=== PATIENT | male | born 1955 | race Caucasian/White ===

== ENCOUNTER 2017-02-12 08:15 | Inpatient (IN) | payer OTHER ==
[~2017-02-12] VITALS: Ht 182.9 cm; Wt 95.4 kg
[2017-02-12 08:57] LABS: BASOPHIL % 0.7 % (0-2); PLATELET COUNT 139 x10^3mcL (130-400); RED CELL DISTRIBUTION WIDTH 13.3 % (11.5-14.5)
[2017-02-12] MEDS ORDERED: ZESTRIL5 MG PO (08:57)
[2017-02-12 09:00] LABS: CALCIUM 7.6 mg/dL (8.5-10.1); CARBON DIOXIDE 22.5 mmol/L (21-32); CHLORIDE SERUM 90 mmol/L (98-107); CREATININE SERUM 0.9 mg/dL (0.7-1.3); GFR1 > 60 mL/min; GLUCOSE SERUM 117 mg/dL (74-106); POTASSIUM SERUM 3.2 mmol/L (3.5-5.1); SODIUM SERUM 125 mmol/L (136-145)
[2017-02-12 09:04] LABS: ALKALINE PHOSPHATASE 132 U/L (46-116); ALT/SGPT 35 U/L (16-63); AST/SGOT 111 U/L (15-37); BILIRUBIN TOTAL 1.14 mg/dL (0.20-1.00); MAGNESIUM 1.7 mg/dL (1.8-2.4); PHOSPHOROUS 4.2 mg/dL (2.5-4.9)
[2017-02-12 09:05] LABS: ALBUMIN 2.8 g/dL (3.4-5.0); TOTAL PROTEIN, SERUM 6.1 g/dL (6.4-8.2)
[2017-02-12 10:59] LABS: CHOLESTEROL/HDL RATIO 2.3
[2017-02-12 11:05] LABS: FREE T4 1.19 ng/dL (0.76-1.46); FREE THYROXINE INDEX 3.2 ug/dL (1.4-4.5); T4(THYROXINE) 7.9 ug/dL (4.7-13.3)
[2017-02-12 11:13] LABS: T3 TOTAL 0.97 ng/mL
[2017-02-12 12:11] VITALS: BP 106/77
[2017-02-12 12:14] VITALS: BP 106/77
[2017-02-12 17:37] LABS: CALCIUM 7.8 mg/dL (8.5-10.1); CARBON DIOXIDE 24.4 mmol/L (21-32); CHLORIDE SERUM 92 mmol/L (98-107); CREATININE SERUM 0.7 mg/dL (0.7-1.3); GFR1 > 60 mL/min; GLUCOSE SERUM 118 mg/dL (74-106); SODIUM SERUM 126 mmol/L (136-145)
[2017-02-12 17:43] VITALS: BP 130/76
[2017-02-12 18:23] LABS: microscopic required? NO
[2017-02-12 18:34] LABS: UA SPECIFIC GRAVITY >=1.030 (1.005-1.035); urine erythrocyte NEGATIVE (NEGATIVE)
[2017-02-12 18:54] LABS: AMPHETAMINE QUAL UR NONE DETECTED (NEG <=1000)
[2017-02-12 21:49] VITALS: BP 119/61
[2017-02-13 05:39] LABS: RED CELL DISTRIBUTION WIDTH 13.3 % (11.5-14.5)
[2017-02-13 06:00] LABS: CALCIUM 7.8 mg/dL (8.5-10.1); CARBON DIOXIDE 26.4 mmol/L (21-32); CHLORIDE SERUM 97 mmol/L (98-107); CREATININE SERUM 0.7 mg/dL (0.7-1.3); GFR1 > 60 mL/min; GLUCOSE SERUM 94 mg/dL (74-106); MAGNESIUM 2.1 mg/dL (1.8-2.4); POTASSIUM SERUM 4.1 mmol/L (3.5-5.1); SODIUM SERUM 129 mmol/L (136-145)
[2017-02-13 06:04] VITALS: BP 111/64
[2017-02-13 07:30] LABS: PLATELET COUNT 57 x10^3mcL (130-400)
[2017-02-13 08:48] VITALS: BP 102/60
[2017-02-13 10:50] LABS: BAND NEUTROPHIL 0 % (0-10); BASOPHIL 0 % (0-2); MONOCYTE 6 % (0-7); SEGMENTED NEUTROPHILS 79 % (37-75)
[2017-02-13 10:51] LABS: PLATELET MORPHOLOGY PLATELETS DECREASED
[2017-02-13 11:51] LABS: RED BLOOD CELLS 3.15 M/mm3 (4.52-5.90)
[2017-02-13 11:52] LABS: IRON 161 ug/dL (65-170)
[2017-02-13 12:03] LABS: TOTAL IRON BINDING CAPACITY 156 ug/dL (250-450)
[2017-02-13 16:59] VITALS: BP 122/75
[2017-02-13 21:33] VITALS: BP 125/79
[2017-02-14 06:03] VITALS: BP 133/84
[2017-02-14 07:00] LABS: RED CELL DISTRIBUTION WIDTH 13.3 % (11.5-14.5)
[2017-02-14 07:18] LABS: ALKALINE PHOSPHATASE 111 U/L (46-116); ALT/SGPT 37 U/L (16-63); AST/SGOT 103 U/L (15-37); CALCIUM 7.8 mg/dL (8.5-10.1); CARBON DIOXIDE 25.7 mmol/L (21-32); CHLORIDE SERUM 99 mmol/L (98-107); CREATININE SERUM 0.7 mg/dL (0.7-1.3); GFR1 > 60 mL/min; GLUCOSE SERUM 97 mg/dL (74-106); POTASSIUM SERUM 4.4 mmol/L (3.5-5.1); SODIUM SERUM 129 mmol/L (136-145)
[2017-02-14 07:21] LABS: ALBUMIN 2.4 g/dL (3.4-5.0); TOTAL PROTEIN, SERUM 5.1 g/dL (6.4-8.2)
[2017-02-14 07:45] LABS: PLATELET COUNT 54 x10^3mcL (130-400)
[2017-02-14 10:14] VITALS: BP 132/83
[2017-02-14 10:35] LABS: ATYPICAL LYMPH 4 %; BAND NEUTROPHIL 4 % (0-10); MONOCYTE 6 % (0-7); SEGMENTED NEUTROPHILS 76 % (37-75)
[2017-02-14 10:36] LABS: rbc morphology (normal/abnorm) ABNORMAL (NORMAL)
[2017-02-14 18:21] VITALS: BP 125/79
[2017-02-14 21:28] VITALS: BP 136/83
[2017-02-15 05:47] VITALS: BP 133/86
[2017-02-15 06:30] LABS: CARBON DIOXIDE 26.8 mmol/L (21-32); CHLORIDE SERUM 102 mmol/L (98-107); CREATININE SERUM 0.6 mg/dL (0.7-1.3); GFR1 > 60 mL/min; GLUCOSE SERUM 80 mg/dL (74-106); POTASSIUM SERUM 4.9 mmol/L (3.5-5.1); SODIUM SERUM 133 mmol/L (136-145)
[2017-02-15 07:10] LABS: BASOPHIL % 0.6 % (0-2); RED CELL DISTRIBUTION WIDTH 13.1 % (11.5-14.5)
[2017-02-15 07:21] LABS: PLATELET COUNT 57 x10^3mcL (130-400)
[2017-02-15 10:33] VITALS: BP 138/8
[2017-02-15] MEDS ORDERED: SOD1 PO (14:02)
[2017-02-15] MEDS ORDERED: ATI1 PO (14:02)
[2017-02-15] MEDS ORDERED: ZOF4 PO (14:03)
[2017-02-15] MEDS ORDERED: THI100 PO (14:03)
[2017-02-15] MEDS ORDERED: THERAGRAN-M1 TA4 PO (14:04)
[2017-02-15] MEDS ORDERED: NORCO1 TA1 PO (14:13)
[2017-02-15 14:19] VITALS: BP 138/86
[2017-02-15 15:28] VITALS: BP 123/78
== END 2017-02-15 15:08 | disposition home or self-care (01) | DRG 204 ==
LOC: ED 08:15 → DU 10:13 → MU 10:13 → DU 12:05 → MU 02-13 06:49
PROVIDERS: Emergency Medicine; Family Medicine; ADMIT Family Medicine
DX: I95.1 Orthostatic hypotension (principal); E43 Unspecified severe protein-calorie malnutrition; E87.2 Acidosis; D61.818 Other pancytopenia; E11.42 Type 2 diabetes mellitus with diabetic polyneuropathy; I48.91 Unspecified atrial fibrillation; G90.9 Disorder of the autonomic nervous system, unspecified; E87.1 Hypo-osmolality and hyponatremia; I10 Essential (primary) hypertension; G62.9 Polyneuropathy, unspecified; E87.6 Hypokalemia; E83.51 Hypocalcemia; E83.42 Hypomagnesemia; L82.1 Other seborrheic keratosis; D64.9 Anemia, unspecified; F10.29 Alcohol dependence with unspecified alcohol-induced disorder; M54.5 Low back pain; D53.9 Nutritional anemia, unspecified; F10.239 Alcohol dependence with withdrawal, unspecified; E87.8 Other disorders of electrolyte and fluid balance, not elsewhere classified; Z96.643 Presence of artificial hip joint, bilateral
CPT/HCPCS: 80307; 83880; 84439; 97110-GP; 97116-GP; 97530-GP; G0480; J1644; J1956; J2060; J2270; J2405; J3475; J7030; J7040; J7613; J7644; Q0092

== ENCOUNTER 2017-03-17 18:26 | Inpatient (IN) | payer OTHER ==
[~2017-03-17] VITALS: Ht 185.4 cm; Wt 94.9 kg
[~2017-03-17 18:26] MED LIST: ATI1 PO; NORCO1 TA1 PO; SOD1 PO; THERAGRAN-M1 TA4 PO; THI100 PO; ZESTRIL5 MG PO; ZOF4 PO
[2017-03-17 19:11] LABS: microscopic required? NO
[2017-03-17 19:17] LABS: PLATELET COUNT 133 x10^3mcL (130-400); RED CELL DISTRIBUTION WIDTH 12.8 % (11.5-14.5)
[2017-03-17 19:20] LABS: UA SPECIFIC GRAVITY <=1.005 (1.005-1.035); urine erythrocyte NEGATIVE (NEGATIVE)
[2017-03-17 19:33] LABS: ALKALINE PHOSPHATASE 187 U/L (46-116); ALT/SGPT 26 U/L (16-63); AST/SGOT 71 U/L (15-37); BILIRUBIN TOTAL 1.69 mg/dL (0.20-1.00); CALCIUM 8.6 mg/dL (8.5-10.1); CARBON DIOXIDE 29.8 mmol/L (21-32); CHLORIDE SERUM 82 mmol/L (98-107); CREATININE SERUM 0.7 mg/dL (0.7-1.3); GFR1 > 60 mL/min; GLUCOSE SERUM 100 mg/dL (74-106); POTASSIUM SERUM 3.6 mmol/L (3.5-5.1); TOTAL PROTEIN, SERUM 6.6 g/dL (6.4-8.2)
[2017-03-17 19:36] LABS: ALBUMIN 2.9 g/dL (3.4-5.0)
[2017-03-17 19:37] LABS: SODIUM SERUM 118 mmol/L (136-145)
[2017-03-17 20:06] LABS: BAND NEUTROPHIL 4 % (0-10); METAMYELOCTE 1 % (0-2); MONOCYTE 9 % (0-7); SEGMENTED NEUTROPHILS 81 % (37-75)
[2017-03-17 20:08] LABS: PLATELET MORPHOLOGY FEW LARGE PLATELETS; rbc morphology (normal/abnorm) NORMAL (NORMAL)
[2017-03-17 22:33] LABS: FREE T4 1.43 ng/dL (0.76-1.46); FREE THYROXINE INDEX 3.8 ug/dL (1.4-4.5); T3 TOTAL 1.07 ng/mL; T4(THYROXINE) 10.2 ug/dL (4.7-13.3)
[2017-03-17 23:31] LABS: AMYLASE 30 U/L (25-115); CALCIUM 8.5 mg/dL (8.5-10.1); CHLORIDE SERUM 84 mmol/L (98-107); CHOLESTEROL 144 mg/dL (<200); CREATININE SERUM 0.6 mg/dL (0.7-1.3); GFR1 > 60 mL/min; GLUCOSE SERUM 130 mg/dL (74-106); LIPASE 98 IU/L (73-393); POTASSIUM SERUM 3.6 mmol/L (3.5-5.1); TRIGLYCERIDES 88 mg/dL (<150)
[2017-03-17 23:41] LABS: CHOLESTEROL/HDL RATIO 4.4; HDL CHOLESTEROL 33 mg/dL (40-60)
[2017-03-17 23:42] LABS: SODIUM SERUM 119 mmol/L (136-145)
[2017-03-18 00:56] VITALS: BP 135/85; BP 136/85
[2017-03-18 02:18] LABS: CALCIUM 8.1 mg/dL (8.5-10.1); CARBON DIOXIDE 27.3 mmol/L (21-32); CREATININE SERUM 0.7 mg/dL (0.7-1.3); GFR1 > 60 mL/min; GLUCOSE SERUM 131 mg/dL (74-106); POTASSIUM SERUM 3.5 mmol/L (3.5-5.1)
[2017-03-18 02:26] LABS: CHLORIDE SERUM 84 mmol/L (98-107)
[2017-03-18 02:28] LABS: SODIUM SERUM 119 mmol/L (136-145)
[2017-03-18 04:52] LABS: AMPHETAMINE QUAL UR NONE DETECTED (NEG <=1000)
[2017-03-18 05:27] VITALS: BP 127/73
[2017-03-18 07:10] LABS: CHOLESTEROL/HDL RATIO 4.4
[2017-03-18 07:42] LABS: CALCIUM 7.9 mg/dL (8.5-10.1); CARBON DIOXIDE 27.7 mmol/L (21-32); CHLORIDE SERUM 86 mmol/L (98-107); CREATININE SERUM 0.7 mg/dL (0.7-1.3); GFR1 > 60 mL/min; GLUCOSE SERUM 116 mg/dL (74-106); MAGNESIUM 1.7 mg/dL (1.8-2.4); POTASSIUM SERUM 3.3 mmol/L (3.5-5.1)
[2017-03-18 07:54] LABS: BASOPHIL % 0.2 % (0-2); RED CELL DISTRIBUTION WIDTH 12.9 % (11.5-14.5)
[2017-03-18 07:57] LABS: PLATELET COUNT 95 x10^3mcL (130-400)
[2017-03-18 07:58] LABS: SODIUM SERUM 120 mmol/L (136-145)
[2017-03-18 09:51] VITALS: BP 137/85
[2017-03-18 12:10] LABS: CALCIUM 7.8 mg/dL (8.5-10.1); CARBON DIOXIDE 28.4 mmol/L (21-32); CHLORIDE SERUM 86 mmol/L (98-107); CREATININE SERUM 0.7 mg/dL (0.7-1.3); GFR1 > 60 mL/min; GLUCOSE SERUM 114 mg/dL (74-106); POTASSIUM SERUM 3.1 mmol/L (3.5-5.1)
[2017-03-18 12:31] LABS: SODIUM SERUM 120 mmol/L (136-145)
[2017-03-18 13:14] VITALS: BP 128/73
[2017-03-18 16:19] LABS: CALCIUM 8.5 mg/dL (8.5-10.1); CARBON DIOXIDE 29.9 mmol/L (21-32); CHLORIDE SERUM 86 mmol/L (98-107); CREATININE SERUM 0.7 mg/dL (0.7-1.3); GFR1 > 60 mL/min; GLUCOSE SERUM 122 mg/dL (74-106); POTASSIUM SERUM 3.8 mmol/L (3.5-5.1)
[2017-03-18 16:40] LABS: SODIUM SERUM 120 mmol/L (136-145)
[2017-03-18 17:30] VITALS: BP 122/71
[2017-03-18 20:24] LABS: CALCIUM 8.7 mg/dL (8.5-10.1); CARBON DIOXIDE 30.6 mmol/L (21-32); CHLORIDE SERUM 86 mmol/L (98-107); CREATININE SERUM 0.7 mg/dL (0.7-1.3); GFR1 > 60 mL/min; GLUCOSE SERUM 133 mg/dL (74-106); POTASSIUM SERUM 3.9 mmol/L (3.5-5.1)
[2017-03-18 20:27] LABS: SODIUM SERUM 120 mmol/L (136-145)
[2017-03-18 21:39] VITALS: BP 121/71
[2017-03-19 05:57] VITALS: BP 127/77
[2017-03-19 07:16] LABS: PLATELET COUNT 138 x10^3mcL (130-400); RED CELL DISTRIBUTION WIDTH 13.2 % (11.5-14.5)
[2017-03-19 07:24] LABS: CALCIUM 8.6 mg/dL (8.5-10.1); CARBON DIOXIDE 28.2 mmol/L (21-32); CHLORIDE SERUM 85 mmol/L (98-107); CREATININE SERUM 0.7 mg/dL (0.7-1.3); GFR1 > 60 mL/min; GLUCOSE SERUM 118 mg/dL (74-106); PHOSPHOROUS 3.7 mg/dL (2.5-4.9); POTASSIUM SERUM 3.8 mmol/L (3.5-5.1)
[2017-03-19 08:21] LABS: SODIUM SERUM 119 mmol/L (136-145)
[2017-03-19 09:05] VITALS: BP 130/77
[2017-03-19 10:45] LABS: BAND NEUTROPHIL 0 % (0-10); BASOPHIL 0 % (0-2); MONOCYTE 11 % (0-7); SEGMENTED NEUTROPHILS 81 % (37-75)
[2017-03-19 10:46] LABS: PLATELET MORPHOLOGY PLATELETS DECREASED; rbc morphology (normal/abnorm) ABNORMAL (NORMAL)
[2017-03-19 13:20] VITALS: BP 113/72
[2017-03-19 15:22] LABS: CALCIUM 7.9 mg/dL (8.5-10.1); CARBON DIOXIDE 25.9 mmol/L (21-32); CHLORIDE SERUM 88 mmol/L (98-107); CREATININE SERUM 0.9 mg/dL (0.7-1.3); GFR1 > 60 mL/min; GLUCOSE SERUM 121 mg/dL (74-106)
[2017-03-19 15:28] LABS: SODIUM SERUM 117 mmol/L (136-145)
[2017-03-19 15:29] LABS: POTASSIUM SERUM 2.8 mmol/L (3.5-5.1)
[2017-03-19 17:35] VITALS: BP 124/72
[2017-03-19 20:24] LABS: CARBON DIOXIDE 25.2 mmol/L (21-32); CHLORIDE SERUM 87 mmol/L (98-107); CREATININE SERUM 0.8 mg/dL (0.7-1.3); GFR1 > 60 mL/min; GLUCOSE SERUM 112 mg/dL (74-106); POTASSIUM SERUM 3.4 mmol/L (3.5-5.1)
[2017-03-19 20:28] LABS: SODIUM SERUM 120 mmol/L (136-145)
[2017-03-19 21:25] VITALS: BP 113/80
[2017-03-20 00:46] LABS: CALCIUM 8.1 mg/dL (8.5-10.1); CARBON DIOXIDE 26.9 mmol/L (21-32); CHLORIDE SERUM 86 mmol/L (98-107); CREATININE SERUM 0.7 mg/dL (0.7-1.3); GFR1 > 60 mL/min; GLUCOSE SERUM 99 mg/dL (74-106); POTASSIUM SERUM 3.7 mmol/L (3.5-5.1)
[2017-03-20 00:52] LABS: SODIUM SERUM 120 mmol/L (136-145)
[2017-03-20 05:31] VITALS: BP 124/77
[2017-03-20 07:30] LABS: RED CELL DISTRIBUTION WIDTH 13.2 % (11.5-14.5)
[2017-03-20 07:31] LABS: BASOPHIL % 0 % (0-2); PLATELET COUNT 97 x10^3mcL (130-400)
[2017-03-20 07:33] LABS: CALCIUM 8.1 mg/dL (8.5-10.1); CARBON DIOXIDE 25.8 mmol/L (21-32); CHLORIDE SERUM 90 mmol/L (98-107); CREATININE SERUM 0.7 mg/dL (0.7-1.3); GFR1 > 60 mL/min; GLUCOSE SERUM 92 mg/dL (74-106); PHOSPHOROUS 3.4 mg/dL (2.5-4.9); POTASSIUM SERUM 3.6 mmol/L (3.5-5.1)
[2017-03-20 07:49] LABS: SODIUM SERUM 124 mmol/L (136-145)
[2017-03-20 09:04] VITALS: BP 144/78
[2017-03-20 14:13] LABS: CALCIUM 8.2 mg/dL (8.5-10.1); CARBON DIOXIDE 26.1 mmol/L (21-32); CHLORIDE SERUM 87 mmol/L (98-107); CREATININE SERUM 0.8 mg/dL (0.7-1.3); GFR1 > 60 mL/min; GLUCOSE SERUM 101 mg/dL (74-106); POTASSIUM SERUM 3.6 mmol/L (3.5-5.1)
[2017-03-20 14:16] LABS: SODIUM SERUM 122 mmol/L (136-145)
[2017-03-20 18:50] VITALS: BP 147/77
[2017-03-20 21:19] LABS: CALCIUM 8.4 mg/dL (8.5-10.1); CARBON DIOXIDE 24.2 mmol/L (21-32); CHLORIDE SERUM 89 mmol/L (98-107); CREATININE SERUM 0.7 mg/dL (0.7-1.3); GFR1 > 60 mL/min; GLUCOSE SERUM 107 mg/dL (74-106); POTASSIUM SERUM 3.9 mmol/L (3.5-5.1)
[2017-03-20 21:23] LABS: SODIUM SERUM 121 mmol/L (136-145)
[2017-03-20 21:28] VITALS: BP 129/67
[2017-03-21 05:21] VITALS: BP 123/70
[2017-03-21 06:56] LABS: CALCIUM 8.5 mg/dL (8.5-10.1); CARBON DIOXIDE 22.7 mmol/L (21-32); CHLORIDE SERUM 89 mmol/L (98-107); CREATININE SERUM 0.6 mg/dL (0.7-1.3); GFR1 > 60 mL/min; GLUCOSE SERUM 88 mg/dL (74-106); POTASSIUM SERUM 3.2 mmol/L (3.5-5.1); SODIUM SERUM 126 mmol/L (136-145)
[2017-03-21 10:00] VITALS: BP 132/85
[2017-03-21 12:30] VITALS: BP 120/71
[2017-03-21 12:46] LABS: CHLORIDE SERUM 89 mmol/L (98-107); POTASSIUM SERUM 3.2 mmol/L (3.5-5.1)
[2017-03-21 12:55] LABS: CALCIUM 8.5 mg/dL (8.5-10.1); CARBON DIOXIDE 24.3 mmol/L (21-32); CREATININE SERUM 0.7 mg/dL (0.7-1.3); GFR1 > 60 mL/min; GLUCOSE SERUM 104 mg/dL (74-106)
[2017-03-21 13:01] LABS: SODIUM SERUM 123 mmol/L (136-145)
[2017-03-21 15:08] VITALS: BP 119/68
[2017-03-21 17:29] VITALS: BP 120/72
[2017-03-21 17:50] LABS: CALCIUM 8.1 mg/dL (8.5-10.1); CHLORIDE SERUM 93 mmol/L (98-107); CREATININE SERUM 0.6 mg/dL (0.7-1.3); GFR1 > 60 mL/min; GLUCOSE SERUM 113 mg/dL (74-106); POTASSIUM SERUM 3.4 mmol/L (3.5-5.1); SODIUM SERUM 125 mmol/L (136-145)
[2017-03-21 18:04] VITALS: BP 120/72
== END 2017-03-21 19:40 | disposition home or self-care (01) | DRG 135 ==
LOC: ED 18:26 → DU 03-18 00:05
PROVIDERS: Emergency Medicine; Family Medicine; ADMIT Family Medicine
DX: S22.42XA Multiple fractures of ribs, left side, initial encounter for closed fracture (principal); N17.0 Acute kidney failure with tubular necrosis; E87.1 Hypo-osmolality and hyponatremia; K76.0 Fatty (change of) liver, not elsewhere classified; J98.11 Atelectasis; I10 Essential (primary) hypertension; Z96.643 Presence of artificial hip joint, bilateral; Z96.652 Presence of left artificial knee joint; W18.39XA Other fall on same level, initial encounter; Y93.89 Activity, other specified; Y92.014 Private driveway to single-family (private) house as the place of occurrence of the external cause
CPT/HCPCS: 80307; 83880; 84439; 94150; G0480; J1170; J1940; J1956; J2270; J2405; J3010; J3490; J7030; Q0092

== ENCOUNTER → 2017-07-03 | Outpatient (CLI) | payer OTHER | END | disposition home or self-care (01) | LOC: RD 11:23 | DX: W19.XXXA Unspecified fall, initial encounter (principal) ==

== ENCOUNTER 2017-10-25 12:12 | Inpatient (IN) | payer OTHER ==
[~2017-10-25] VITALS: Ht 182.9 cm; Wt 100.7 kg
[2017-10-25 12:40] LABS: PLATELET COUNT 130 x10^3mcL (130-400); RED CELL DISTRIBUTION WIDTH 14.3 % (11.5-14.5)
[2017-10-25 13:06] LABS: ALKALINE PHOSPHATASE 624 U/L (46-116); ALT/SGPT 18 U/L (16-63); AST/SGOT 120 U/L (15-37); BILIRUBIN TOTAL 9.02 mg/dL (0.20-1.00); CALCIUM 8.2 mg/dL (8.5-10.1); CHLORIDE SERUM 84 mmol/L (98-107); CREATININE SERUM 0.6 mg/dL (0.7-1.3); GFR1 > 60 mL/min; GLUCOSE SERUM 133 mg/dL (74-106); POTASSIUM SERUM 3.5 mmol/L (3.5-5.1)
[2017-10-25 13:07] LABS: BAND NEUTROPHIL 2 % (0-10); BASOPHIL 0 % (0-2); MONOCYTE 3 % (0-7); SEGMENTED NEUTROPHILS 91 % (37-75)
[2017-10-25 13:09] LABS: PLATELET MORPHOLOGY PLATELETS NORMAL
[2017-10-25 13:11] LABS: ALBUMIN 2.1 g/dL (3.4-5.0); SODIUM SERUM 118 mmol/L (136-145)
[2017-10-25] MEDS ORDERED: LASIX20 MG PO (14:21)
[2017-10-25] MEDS ORDERED: ALDACTONE25 MG PO (14:21)
[2017-10-25 17:18] LABS: APPEARANCE FLUID CLEAR; COLOR FLUID YELLOW; LYMPHOCYTE FLUID 40 %; RBC FLUID 32 /cumm; SOURCE FLUID ASCITES; WBC FLUID 142 /cumm
[2017-10-25 18:09] LABS: T3 TOTAL 0.88 ng/mL
[2017-10-25 18:12] LABS: FREE T4 1.89 ng/dL (0.76-1.46); T4(THYROXINE) 9.9 ug/dL (4.7-13.3)
[2017-10-25 18:23] VITALS: BP 108/63
[2017-10-25 18:53] LABS: MAGNESIUM 1.9 mg/dL (1.8-2.4); PHOSPHOROUS 3.4 mg/dL (2.5-4.9)
[2017-10-25 18:55] LABS: CHOLESTEROL/HDL RATIO 7.8
[2017-10-25 20:54] VITALS: BP 99/62
[2017-10-25 21:17] LABS: CALCIUM 7.8 mg/dL (8.5-10.1); CHLORIDE SERUM 85 mmol/L (98-107); CREATININE SERUM 0.6 mg/dL (0.7-1.3); GFR1 > 60 mL/min; GLUCOSE SERUM 120 mg/dL (74-106); POTASSIUM SERUM 3.5 mmol/L (3.5-5.1)
[2017-10-25 21:23] LABS: SODIUM SERUM 119 mmol/L (136-145)
[2017-10-25 21:41] LABS: microscopic required? YES; urine erythrocyte NEGATIVE (NEGATIVE)
[2017-10-25 21:49] LABS: AMPHETAMINE QUAL UR NONE DETECTED (NEG <=1000)
[2017-10-25 21:54] LABS: OSMOLALITY SERUM 246 mOsm/kg (278-298)
[2017-10-26 01:36] LABS: CALCIUM 7.7 mg/dL (8.5-10.1); CARBON DIOXIDE 32.6 mmol/L (21-32); CHLORIDE SERUM 85 mmol/L (98-107); CREATININE SERUM 0.6 mg/dL (0.7-1.3); GFR1 > 60 mL/min; GLUCOSE SERUM 110 mg/dL (74-106); POTASSIUM SERUM 3.5 mmol/L (3.5-5.1)
[2017-10-26 02:08] LABS: SODIUM SERUM 119 mmol/L (136-145)
[2017-10-26 04:12] LABS: CARBON DIOXIDE 30.7 mmol/L (21-32); CHLORIDE SERUM 86 mmol/L (98-107); CREATININE SERUM 0.6 mg/dL (0.7-1.3); GFR1 > 60 mL/min; GLUCOSE SERUM 125 mg/dL (74-106); POTASSIUM SERUM 3.5 mmol/L (3.5-5.1)
[2017-10-26 04:18] LABS: SODIUM SERUM 120 mmol/L (136-145)
[2017-10-26 05:51] VITALS: BP 89/54
[2017-10-26 06:55] LABS: BASOPHIL % 0.3 % (0-2); RED CELL DISTRIBUTION WIDTH 14.1 % (11.5-14.5)
[2017-10-26 06:59] LABS: PLATELET COUNT 81 x10^3mcL (130-400)
[2017-10-26 07:11] LABS: CALCIUM 7.8 mg/dL (8.5-10.1); CARBON DIOXIDE 29.3 mmol/L (21-32); CHLORIDE SERUM 85 mmol/L (98-107); CREATININE SERUM 0.6 mg/dL (0.7-1.3); GFR1 > 60 mL/min; GLUCOSE SERUM 112 mg/dL (74-106); MAGNESIUM 1.9 mg/dL (1.8-2.4); PHOSPHOROUS 3.5 mg/dL (2.5-4.9); POTASSIUM SERUM 3.1 mmol/L (3.5-5.1)
[2017-10-26 07:21] LABS: SODIUM SERUM 122 mmol/L (136-145)
[2017-10-26 09:38] VITALS: BP 98/58
[2017-10-26 14:05] VITALS: BP 108/63
[2017-10-26 16:57] LABS: CALCIUM 8.3 mg/dL (8.5-10.1); CARBON DIOXIDE 29.7 mmol/L (21-32); CHLORIDE SERUM 86 mmol/L (98-107); CREATININE SERUM 0.5 mg/dL (0.7-1.3); GFR1 > 60 mL/min; GLUCOSE SERUM 114 mg/dL (74-106); POTASSIUM SERUM 3.4 mmol/L (3.5-5.1)
[2017-10-26 16:59] LABS: SODIUM SERUM 122 mmol/L (136-145)
[2017-10-26 17:25] VITALS: BP 94/59
[2017-10-26 20:04] LABS: CALCIUM 7.9 mg/dL (8.5-10.1); CARBON DIOXIDE 28.9 mmol/L (21-32); CHLORIDE SERUM 88 mmol/L (98-107); CREATININE SERUM 0.8 mg/dL (0.7-1.3); GFR1 > 60 mL/min; GLUCOSE SERUM 128 mg/dL (74-106); POTASSIUM SERUM 3.3 mmol/L (3.5-5.1)
[2017-10-26 20:05] LABS: SODIUM SERUM 122 mmol/L (136-145)
[2017-10-26 20:54] VITALS: BP 103/63
[2017-10-27 01:13] LABS: CARBON DIOXIDE 28.2 mmol/L (21-32); CHLORIDE SERUM 88 mmol/L (98-107); CREATININE SERUM 0.6 mg/dL (0.7-1.3); GFR1 > 60 mL/min; GLUCOSE SERUM 119 mg/dL (74-106); POTASSIUM SERUM 3.4 mmol/L (3.5-5.1)
[2017-10-27 01:16] LABS: SODIUM SERUM 122 mmol/L (136-145)
[2017-10-27 05:01] VITALS: BP 100/56
[2017-10-27 05:09] VITALS: BP 114/72
[2017-10-27 06:47] LABS: BASOPHIL % 0.3 % (0-2); RED CELL DISTRIBUTION WIDTH 14.2 % (11.5-14.5)
[2017-10-27 07:04] LABS: CALCIUM 7.8 mg/dL (8.5-10.1); CARBON DIOXIDE 28.8 mmol/L (21-32); CHLORIDE SERUM 91 mmol/L (98-107); CREATININE SERUM 0.7 mg/dL (0.7-1.3); GFR1 > 60 mL/min; GLUCOSE SERUM 109 mg/dL (74-106); SODIUM SERUM 125 mmol/L (136-145)
[2017-10-27 07:17] LABS: PLATELET COUNT 97 x10^3mcL (130-400)
[2017-10-27 09:29] VITALS: BP 102/50
[2017-10-27 15:00] LABS: RED BLOOD CELLS 2.87 M/mm3 (4.52-5.90)
[2017-10-27 15:02] LABS: IRON 54 ug/dL (65-170)
[2017-10-27 15:06] LABS: TOTAL IRON BINDING CAPACITY 63 ug/dL (250-450)
[2017-10-27 16:20] VITALS: BP 92/48
[2017-10-27 20:59] VITALS: BP 102/54
[2017-10-28 05:24] VITALS: BP 91/55
[2017-10-28 06:31] LABS: CALCIUM 7.7 mg/dL (8.5-10.1); CARBON DIOXIDE 28.5 mmol/L (21-32); CHLORIDE SERUM 94 mmol/L (98-107); CREATININE SERUM 0.6 mg/dL (0.7-1.3); GFR1 > 60 mL/min; GLUCOSE SERUM 87 mg/dL (74-106); POTASSIUM SERUM 3.7 mmol/L (3.5-5.1); SODIUM SERUM 126 mmol/L (136-145)
[2017-10-28 06:42] LABS: BASOPHIL % 1.4 % (0-2); RED CELL DISTRIBUTION WIDTH 14.5 % (11.5-14.5)
[2017-10-28 06:44] LABS: PLATELET COUNT 82 x10^3mcL (130-400)
[2017-10-28 09:16] VITALS: BP 91/57
[2017-10-28 13:10] LABS: CALCIUM 7.7 mg/dL (8.5-10.1); CARBON DIOXIDE 27.2 mmol/L (21-32); CHLORIDE SERUM 93 mmol/L (98-107); CREATININE SERUM 0.6 mg/dL (0.7-1.3); GFR1 > 60 mL/min; GLUCOSE SERUM 100 mg/dL (74-106); POTASSIUM SERUM 3.4 mmol/L (3.5-5.1); SODIUM SERUM 127 mmol/L (136-145)
[2017-10-28 16:10] VITALS: BP 105/61
[2017-10-28 21:01] VITALS: BP 92/54
[2017-10-29 05:11] VITALS: BP 93/59
[2017-10-29 06:29] LABS: CALCIUM 8.2 mg/dL (8.5-10.1); CARBON DIOXIDE 26.1 mmol/L (21-32); CHLORIDE SERUM 94 mmol/L (98-107); CREATININE SERUM 0.5 mg/dL (0.7-1.3); GFR1 > 60 mL/min; GLUCOSE SERUM 110 mg/dL (74-106); MAGNESIUM 2.1 mg/dL (1.8-2.4); PHOSPHOROUS 3.3 mg/dL (2.5-4.9); POTASSIUM SERUM 3.8 mmol/L (3.5-5.1); SODIUM SERUM 128 mmol/L (136-145)
[2017-10-29 06:52] LABS: PLATELET COUNT 116 x10^3mcL (130-400); RED CELL DISTRIBUTION WIDTH 14.6 % (11.5-14.5)
[2017-10-29 09:03] VITALS: BP 94/60
[2017-10-29 11:06] VITALS: BP 94/60
[2017-10-29 11:33] LABS: BAND NEUTROPHIL 0 % (0-10); BASOPHIL 0 % (0-2); MONOCYTE 5 % (0-7); SEGMENTED NEUTROPHILS 92 % (37-75)
[2017-10-29 11:34] LABS: rbc morphology (normal/abnorm) ABNORMAL (NORMAL)
[2017-10-29 11:35] LABS: PLATELET MORPHOLOGY PLATELETS DECREASED
[2017-10-29] MEDS ORDERED: SOD1 PO (11:46)
[2017-10-29] MEDS ORDERED: LAC30L PO (11:46)
[2017-10-29] MEDS ORDERED: LAC PO (11:47)
[2017-10-29] MEDS ORDERED: APAP/HYDROCODON1 T13 PO (11:48)
[2017-10-29] MEDS ORDERED: COL100 PO (11:48)
[2017-10-29] MEDS ORDERED: COMPAZINE10 M1 PO (11:50)
[2017-10-29] MEDS ORDERED: ATIVAN0.5 M1 PO (11:50)
[2017-10-29] MEDS ORDERED: TYL325 PR (11:52)
[2017-10-29] MEDS ORDERED: BISACODYL10 MG RC (11:53)
[2017-10-29] MEDS ORDERED: ALDACTONE25 MG PO (11:54)
== END 2017-10-29 12:36 | disposition hospice, home (50) | DRG 871 ==
LOC: ED 12:12 → MU 14:13 → DU 14:13 → MU 10-27 01:24
PROVIDERS: Emergency Medicine; Family Medicine
PROC: 0W9G3ZZ Drainage of Peritoneal Cavity, Percutaneous Approach (ICD-10-PCS; principal; 2017-10-25)
DX: A41.9 Sepsis, unspecified organism (principal); N17.0 Acute kidney failure with tubular necrosis; G93.41 Metabolic encephalopathy; E43 Unspecified severe protein-calorie malnutrition; E87.1 Hypo-osmolality and hyponatremia; J98.11 Atelectasis; R18.8 Other ascites; R65.20 Severe sepsis without septic shock; K72.90 Hepatic failure, unspecified without coma; K76.0 Fatty (change of) liver, not elsewhere classified; K74.60 Unspecified cirrhosis of liver; E87.6 Hypokalemia; E07.9 Disorder of thyroid, unspecified; D63.8 Anemia in other chronic diseases classified elsewhere; M19.90 Unspecified osteoarthritis, unspecified site; Z96.652 Presence of left artificial knee joint; Z96.643 Presence of artificial hip joint, bilateral; Z87.891 Personal history of nicotine dependence; Z68.28 Body mass index [BMI] 28.0-28.9, adult
CPT/HCPCS: 49083; 83880; 84439; 90732; 97110-GP; 97116-GP; 97530-GP; J0696; J1885; J3490; J7030; Q0092